=== PATIENT | female | born 1970 ===

== ENCOUNTER 2020-02-17 14:51 | Outpatient (REF) | payer BC, SELFPAY ==
[2020-02-20 22:04] LABS: SARS-CoV-2 RNA Undetected (Undetected)
== END 2020-02-17 15:11 ==
LOC: NCHCN 14:51
PROVIDERS: PCP Family Medicine; Visit Provider Family Medicine
DX: Z20.828 Contact with and (suspected) exposure to other viral communicable diseases (principal)
CPT/HCPCS: U0003